=== PATIENT | female | born 1985 | race Caucasian/White ===

== ENCOUNTER 2017-11-11 20:56 | Emergency (ER) | payer OTHER ==
[~2017-11-11] VITALS: Ht 165.1 cm; Wt 56.7 kg
[~2017-11-11 20:56] MED LIST: AUGMENTIN 875-1 EACH PO; BACTRIM DS TAB1 EAC1 PO; BACTRIM DS TAB1 EACH PO; CHLORZOXAZONE500 MG PO; DICLOFENAC SODI75 MG PO; DIFLUCAN150 MG PO; FLEXERIL PO; HYDROCODONE-AP1 EAC6 PO; IBUPROFEN 800800 MG PO; KEFLEX500 MG PO; MEDROLDOSEPACK PO; MUCINEX600 MG PO; NAPROSYN500 MG PO; NOHOMEMEDICATIONS; NORCO 5-325 TA1 EACH PO; PERCOCET PO; PREDNISONE 20 M20 MG PO; PRENATAL; PROMETH-CODEIN 65 ML PO; VENTOLIN HFA 1818 GM INH; VICODIN 5-5001 EACH PO
[2017-11-11] MEDS ORDERED: NOHOMEMEDICATIONS (21:16)
[2017-11-11] MEDS ORDERED: KETOCONAZOLE15 GM TOP (21:20)
[2017-11-11] MEDS ORDERED: BACTROBAN CREAM30 G1 TOP (21:20)
[2017-11-11 21:34] VITALS: BP 121/60
== END 2017-11-11 21:35 | disposition home or self-care (01) ==
LOC: M.ERS 20:56
DX: L21.9 Seborrheic dermatitis, unspecified (principal); F17.210 Nicotine dependence, cigarettes, uncomplicated; Z88.6 Allergy status to analgesic agent; Z88.8 Allergy status to other drugs, medicaments and biological substances; Z90.49 Acquired absence of other specified parts of digestive tract

== ENCOUNTER 2019-05-21 06:47 | Emergency (ER) | payer OTHER ==
[~2019-05-21] VITALS: Ht 160 cm; Wt 56.7 kg
[~2019-05-21 06:47] MED LIST changes: +BACTROBAN CREAM30 G1 TOP; +KETOCONAZOLE15 GM TOP
[2019-05-21 07:59] VITALS: BP 123/47
[2019-05-21 08:01] LABS: URINE BLOOD TRACE (Negative); URINE CLARITY CLEAR; URINE COLOR YELLOW; URINE GLUCOSE-RANDOM NEGATIVE (Negative); URINE KETONES 1+ (Negative); URINE LEUKOCYTES-REFLEX NEGATIVE (Negative); URINE NITRITE-REFLEX NEGATIVE (Negative); URINE PROTEIN 3+ (Negative); URINE SPECIFIC GRAVITY >= 1.030 (1.005-1.030); URINE UROBILINOGEN 0.2 E.U./dl (0.2-1.0)
[2019-05-21 08:14] LABS: ICTOTEST (BILI CONFIRMATORY) Negative (Negative); URINE BILIRUBIN 1+ (Negative)
[2019-05-21 08:25] LABS: HYALINE CASTS 4-10 Moderate /LPF (None Seen); MUCUS 4-6 Moderate strn/LPF (None Seen); SQUAMOUS >10 Many /LPF (0-3); URINE RBC 0-2 Rare /HPF (0-2); URINE WBC-REFLEX 0-5 Rare /HPF (0-5)
[2019-05-21 08:26] LABS: AMORPHOUS URATES Few /LPF (None Seen)
[2019-05-21 08:34] LABS: AMP/METHAMP POSITIVE (Negative); BARBITURATES Negative (Negative); BENZODIAZEPINES POSITIVE (Negative); COCAINE Negative (Negative); METHADONE Negative (Negative); OPIATES Negative (Negative); PCP Negative (Negative); THC POSITIVE (Negative)
== END 2019-05-21 08:01 | disposition left against medical advice (07) ==
LOC: M.ERS 06:47
PROVIDERS: Personal Emergency Response Attendant
DX: F41.9 Anxiety disorder, unspecified (principal); F17.210 Nicotine dependence, cigarettes, uncomplicated; Z88.8 Allergy status to other drugs, medicaments and biological substances; Z88.6 Allergy status to analgesic agent; Z90.49 Acquired absence of other specified parts of digestive tract; Z98.890 Other specified postprocedural states; Y08.89XA Assault by other specified means, initial encounter; Y93.89 Activity, other specified; Y92.89 Other specified places as the place of occurrence of the external cause; Y99.8 Other external cause status; Z79.899 Other long term (current) drug therapy

== ENCOUNTER 2020-06-25 13:06 | Emergency (ER) | payer OTHER ==
[~2020-06-25] VITALS: Ht 162.6 cm; Wt 63.5 kg
[2020-06-25] MEDS ORDERED: ABILIFY10 MG PO (13:19)
[2020-06-25 13:59] LABS: ABSOLUTE BASOPHILS 0.1 thou/uL (0.0-0.2); ABSOLUTE EOSINOPHILS 0.1 thou/uL (0.0-0.7); ABSOLUTE LYMPHOCYTES 1.2 thou/uL (0.8-5.3); ABSOLUTE MONOCYTES 0.4 thou/uL (0.0-1.2); ABSOLUTE NEUTROPHILS 4.4 thou/uL (1.6-8.1); BASOPHILS 1.3 %; EOSINOPHILS 0.9 %; HEMATOCRIT 37.3 % (37.0-47.0); HEMOGLOBIN 12.3 gm/dL (12.0-15.0); LYMPHOCYTES 20.1 %; MCH 26.9 pg (26.0-34.0); MCHC 32.8 g/dL (28.0-37.0); MCV 81.9 fL (80.0-100.0); MONOCYTES 6.8 %; MPV 7.4 fl. (7.2-11.1); NUCLEATED RBCS 0 /100WBC; PLATELET COUNT* 266 thou/uL (150-400); POLYS 70.9 %; RBC 4.55 mil/uL (4.20-5.00); RDW-CV 15.2 % (10.5-14.5); WBC 6.2 thou/uL (4.0-11.0)
[2020-06-25 14:16] LABS: CALCIUM 9.1 mg/dL (8.5-10.1); CREATININE 0.8 mg/dL (0.6-1.3); POTASSIUM 3.8 mmol/L (3.5-5.1)
[2020-06-25 14:19] LABS: URINE BILIRUBIN NEGATIVE (Negative); URINE BLOOD NEGATIVE (Negative); URINE CLARITY CLEAR; URINE COLOR YELLOW; URINE GLUCOSE-RANDOM NEGATIVE (Negative); URINE KETONES NEGATIVE (Negative); URINE LEUKOCYTES-REFLEX NEGATIVE (Negative); URINE NITRITE-REFLEX NEGATIVE (Negative); URINE PROTEIN TRACE (Negative); URINE SPECIFIC GRAVITY >= 1.030 (1.005-1.030); URINE UROBILINOGEN 0.2 E.U./dl (0.2-1.0)
[2020-06-25 14:20] LABS: ALBUMIN 3.8 g/dL (3.4-5.0); TOTAL BILIRUBIN 0.1 mg/dL (<0.1-1.0); TOTAL PROTEIN 7.6 g/dL (6.4-8.2)
[2020-06-25 14:24] LABS: AMP/METHAMP POSITIVE (Negative); BARBITURATES Negative (Negative); BENZODIAZEPINES Negative (Negative); COCAINE Negative (Negative); METHADONE Negative (Negative); OPIATES Negative (Negative); PCP Negative (Negative); THC Negative (Negative)
[2020-06-25 16:48] VITALS: BP 107/67
--- NOTE | 2020-06-26 12:41 | EKG ---
[place] [address] ELECTROCARDIOGRAM REPORT Name: ALEAH DIAZ Room: [facility]#: [id number] Admission: 06/25/20 Attend Phys: Discharge: 06/25/20 Date of : 85 Date of Service: 06/25/20 1312 Report #: [id number] THIS REPORT FOR: //name// [facility] ED Test Date: 2020-06-25 Test Time: 13:12:34 Pat Name: ALEAH DIAZ Department: Room: Gender: [employer] Director [employer]: ZOE : 1985 Requested By: Yuriy Thomas Order Number: [id number] MD: Ahmet Fierro Measurements Intervals [place] Rate: 86 P: 6 MD: 111 QRS: 52 QRSD: 83 T: -19 QT: 369 QTc: 442 Interpretive Statements Sinus rhythm Borderline short MD interval RSR' in V1 or V2, probably normal variant Borderline T abnormalities, inferior leads No previous ECG available for comparison Electronically Signed On 06-26-2020 12:41:18 TUMOR REGISTRAR by Ahmet Fierro [email or web address] <ELECTRONICALLY SIGNED> By: Bolivar Fierro MD, [facility] 06/26/20 1241 1312 1312 Bolivar Fierro MD, [facility] /EPI
== END 2020-06-25 17:05 | disposition home or self-care (01) ==
LOC: M.ERS 13:06
PROVIDERS: Emergency Medicine Emergency Medical Services
DX: F41.0 Panic disorder [episodic paroxysmal anxiety] (principal); R55 Syncope and collapse; F17.210 Nicotine dependence, cigarettes, uncomplicated; Z90.49 Acquired absence of other specified parts of digestive tract; Z90.89 Acquired absence of other organs; Z88.8 Allergy status to other drugs, medicaments and biological substances; Z79.899 Other long term (current) drug therapy

== ENCOUNTER 2020-07-06 19:40 | Emergency (ER) | payer OTHER ==
[~2020-07-06] VITALS: Ht 165.1 cm; Wt 63.5 kg
[~2020-07-06 19:40] MED LIST changes: +ABILIFY10 MG PO
[2020-07-06] MEDS ORDERED: ABILIFY 5 MG TAB5 MG (19:45)
[2020-07-06 20:19] LABS: URINE BILIRUBIN NEGATIVE (Negative); URINE BLOOD 3+ (Negative); URINE CLARITY CLEAR; URINE COLOR YELLOW; URINE GLUCOSE-RANDOM NEGATIVE (Negative); URINE KETONES TRACE (Negative); URINE LEUKOCYTES-REFLEX NEGATIVE (Negative); URINE NITRITE-REFLEX NEGATIVE (Negative); URINE PROTEIN NEGATIVE (Negative); URINE SPECIFIC GRAVITY 1.025 (1.005-1.030); URINE UROBILINOGEN 0.2 E.U./dl (0.2-1.0)
[2020-07-06 20:26] LABS: MUCUS None Seen strn/LPF (None Seen)
[2020-07-06 20:27] LABS: URINE WBC-REFLEX 0-5 Rare /HPF (0-5)
[2020-07-06 20:28] LABS: BACTERIA-REFLEX None Seen /HPF (None Seen); CASTS None Seen /LPF (None Seen); CRYSTALS None Seen /LPF (None Seen); SQUAMOUS >10 Many /LPF (0-3)
[2020-07-06 20:32] LABS: ABSOLUTE BASOPHILS 0.1 thou/uL (0.0-0.2); ABSOLUTE EOSINOPHILS 0.1 thou/uL (0.0-0.7); ABSOLUTE MONOCYTES 0.8 thou/uL (0.0-1.2); ABSOLUTE NEUTROPHILS 6.1 thou/uL (1.6-8.1); BASOPHILS 1.3 %; EOSINOPHILS 1.2 %; HEMATOCRIT 32.3 % (37.0-47.0); HEMOGLOBIN 11.1 gm/dL (12.0-15.0); LYMPHOCYTES 22.2 %; MCH 27.9 pg (26.0-34.0); MCHC 34.3 g/dL (28.0-37.0); MCV 81.3 fL (80.0-100.0); MONOCYTES 8.3 %; MPV 7.3 fl. (7.2-11.1); NUCLEATED RBCS 0 /100WBC; PLATELET COUNT* 316 thou/uL (150-400); RBC 3.98 mil/uL (4.20-5.00); RDW-CV 14.8 % (10.5-14.5); WBC 9.1 thou/uL (4.0-11.0)
[2020-07-06 20:40] LABS: CALCIUM 8.7 mg/dL (8.5-10.1); CREATININE 0.6 mg/dL (0.6-1.3); POTASSIUM 3.8 mmol/L (3.5-5.1)
[2020-07-06 20:41] LABS: ALBUMIN 3.9 g/dL (3.4-5.0)
[2020-07-06 20:55] LABS: TOTAL BILIRUBIN 0.1 mg/dL (<0.1-1.0); TOTAL PROTEIN 7.2 g/dL (6.4-8.2)
[2020-07-06 22:23] VITALS: BP 122/68
== END 2020-07-06 22:23 | disposition home or self-care (01) ==
LOC: M.ERS 19:40
PROVIDERS: Emergency Medicine
DX: R10.32 Left lower quadrant pain (principal); N93.9 Abnormal uterine and vaginal bleeding, unspecified; F17.210 Nicotine dependence, cigarettes, uncomplicated; Z88.8 Allergy status to other drugs, medicaments and biological substances; Z90.49 Acquired absence of other specified parts of digestive tract; Z90.89 Acquired absence of other organs; Z79.899 Other long term (current) drug therapy